=== PATIENT | male | born 1955 | race Caucasian/White ===

== ENCOUNTER 2019-10-11 21:08 | Observation (INO) | payer BC, OTHER ==
[2019-10-11] MEDS ORDERED: Morphine 2 MG/ML Syringe IVPUSH ONE (21:28)
[2019-10-11] MEDS ORDERED: Sodium Chloride 0.9% 2.5 ML Syringe FLUSH PRN (21:28)
[2019-10-11] MEDS ORDERED: Ibuprofen 800 MG Tab PO ONE (21:28)
[2019-10-11] MEDS ORDERED: Sodium Chloride 0.9% 10 ML Syringe FLUSH PRN (21:28)
[2019-10-11] MEDS ORDERED: Sodium Chloride 0.9% 1,000 ML IV ONE (21:28)
[2019-10-11] MEDS ORDERED: Acetaminophen 500 MG Tab PO ONE (21:28)
--- NOTE | 2019-10-11 21:34 | EDM.PDOC ---
ED HPI GENERAL MEDICAL PROBLEM - General Chief Complaint: Fever Stated Complaint: FLU SYMPTOMS Time Seen by Provider: 10/11/19 21:18 - History of Present Illness INITIAL COMMENTS - FREE TEXT/NARRATIVE: HISTORY AND PHYSICAL: History of present illness: The patient is a 64-year-old male with a history of hypertension who did get his influenza shot and presents with starting to feel poorly and having some rectal pain on and some loose stool which he does not normally have that is not black or bloody associated with that. The patient says he has a history of colon cancer and had the proximal third of his colon removed and is in remission and says that his stools are not normally loose because he takes a fiber supplement. He says that over the weekend he started feeling more generalized aches and pains along with the perirectal pain but no abdominal pain cough runny nose sore throat shortness of breath or chest pain. He started taking Tylenol and Motrin but stopped taking the Motrin because his looked up that it might inactivate his losartan. He has not taken any Motrin in the last more than 24 hours. He took 1000 mg of Tylenol at 2 PM approximately 7-1/2 hours ago, and took 500 mg at 4:30 PM approximately 5-1/2 hours ago. He says it is not broken his fever. He is eating and drinking normally and has no nausea. Review of systems: As per history of present illness and below otherwise all systems reviewed and negative. Past medical history: As per history of present illness and as reviewed below otherwise noncontributory. Surgical history: As per history of present illness and as reviewed below otherwise noncontributory. Social history: No reported history of drug or alcohol abuse. Family history: As per history of present illness and as reviewed below otherwise noncontributory. Physical exam: General: Well-developed well-nourished man who is overweight and nontoxic. Vital signs are noted by me HEENT: Atraumatic, normocephalic, pupils reactive, negative for conjunctival pallor or scleral icterus, mucous membranes moist, throat clear, neck supple, nontender, trachea midline. Lungs: Clear to auscultation, breath sounds equal bilaterally, chest nontender. Heart: S1S2, regular, negative for clicks, rubs, or JVD. Abdomen: Soft, nondistended, minimally tender in the left lower quadrant without rebound or guarding and it does not reproduce the pain exactly Negative for masses or hepatosplenomegaly. Negative for costovertebral tenderness. Pelvis: Stable nontender. Genitourinary: Deferred. Rectal: There is no external perianal lesions fullness or tenderness appreciated and on digital rectal exam performed by Dr. Graham and there were no palpable abscesses or masses appreciated. There was tenderness with this exam but no appreciable palpable deformities were noted by him Extremities: Atraumatic, negative for cords or calf pain. Neurovascular unremarkable. Neuro: Awake, alert, oriented. Cranial nerves II through XII unremarkable. Cerebellum unremarkable. Motor and sensory unremarkable throughout. Exam nonfocal. Diagnostics: CBC CMP lactic acid blood cultures influenza chest x-ray UA with reflex CT scan of the abdomen and pelvis Therapeutics: IV fluids Tylenol Motrin morphine Flagyl Levaquin Consult was requested to Dr Graham ; he and the patient and has perform the rectal exam with me. Please see his consult for further details and I will involve him as needed going forward pending the CAT scan results [id number]: Case was discussed with Dr. Graham and we will admit the patient here for IV antibiotics and he will be the primary care physician on this patient. Testing results were discussed with the patient and he is agreeable Impression: proctitis Definitive disposition and diagnosis as appropriate pending reevaluation and review of above. Buttock Pain Score (Numeric/FACES): 5 - Related Data Allergies Allergy/AdvReac Type Severity Reaction Status Date / Time No Known Allergies Allergy Verified 10/11/19 21:14 Home Meds: Home Meds Allopurinol [Zyloprim] 300 mg PO DAILY 10/11/19 [History] Losartan [Cozaar] 50 mg PO DAILY 10/11/19 [History] Multivitamin [Multivitamins] 1 each PO DAILY 10/11/19 [History] Psyllium Husk [Metamucil] 660 gm PO DAILY 10/11/19 [History] Past Medical History Cardiovascular History: Reports: High Cholesterol, Hypertension Oncologic (Cancer) History: Reports: Colon - Infectious Disease History Infectious Disease History: Reports: Chicken Pox, Measles - Past Surgical History HEENT Surgical History: Reports: Adenoidectomy, Tonsillectomy GI Surgical History: Reports: Other (See Below) Other GI Surgeries/Procedures: upper third of colon removed Social & Family History - Family History Family Medical History: Noncontributory - Tobacco Use Smoking Status *Q: Never Smoker - Caffeine Use Caffeine Use: Reports: Energy Drinks - Recreational Drug Use Recreational Drug Use: No ED ROS GENERAL - Review of Systems Review Of Systems: Comprehensive ROS is negative, except as noted in HPI. ED EXAM, GENERAL - Physical Exam Exam: See Below (See dictation) Course - Vital Signs Last Recorded V/S: Last Vital Signs Temp 37.2 C 10/11/19 23:51 Pulse 87 10/11/19 23:51 Resp 20 10/11/19 23:51 BP 135/59 L 10/11/19 23:51 Pulse Ox 94 L 10/11/19 23:51 - Orders/Labs/Meds Orders: Active Orders 24 hr Category Date Time Status Patient Status [ADT] Stat ADT 10/11/19 23:57 Ordered Notify Provider Consults [RC] ASDIRECTED Care 10/11/19 21:39 Active Consult to Physician [CONS] Stat Cons 10/11/19 21:39 Active CULTURE BLOOD [BC] Stat Lab 10/11/19 21:53 Received CULTURE BLOOD [BC] Stat Lab 10/11/19 22:14 Received Lactated Ringers @ 150 MLS/HR(1,000ml) Med 10/11/19 23:45 Ordered Lactated Ringers [Ringers, Lactated] 1,000 ml IV ASDIRECTED Levofloxacin/Dextrose 5%-Water [Levaquin in D5W 500 MG/ Med 10/11/19 23:56 Ordered 100 ML] 500 mg Premix Bag 1 bag IV ONETIME Sodium Chloride 0.9% [Saline Flush] Med 10/11/19 21:28 Active 10 ml FLUSH ASDIRECTED PRN Sodium Chloride 0.9% [Saline Flush] Med 10/11/19 21:28 Active 2.5 ml FLUSH ASDIRECTED PRN metroNIDAZOLE/Normal Saline [Flagyl 500 MG in NS 100 ML Med 10/11/19 23:56 Ordered ] 500 mg Premix Bag 1 bag IV ONETIME Blood Culture x2 Reflex Set [OM.PC] Stat Oth 10/11/19 21:30 Ordered Saline Lock Insert [OM.PC] Stat Oth 10/11/19 21:28 Ordered Medication Orders Lactated Ringer's (Ringers, Lactated) 1,000 mls @ 150 mls/hr IV ASDIRECTED TROY Levofloxacin/Dextrose 500 mg/ (Premix) 100 mls @ 100 mls/hr IV ONETIME ONE Stop: 10/12/19 00:55 Metronidazole 500 mg/ Premix 100 mls @ 100 mls/hr IV ONETIME ONE Stop: 10/12/19 00:55 Sodium Chloride (Saline Flush) 10 ml FLUSH ASDIRECTED PRN PRN Reason: Keep Vein Open Last Admin: 10/11/19 22:18 Dose: 10 ml Sodium Chloride (Saline Flush) 2.5 ml FLUSH ASDIRECTED PRN PRN Reason: Keep Vein Open Last Admin: 10/11/19 22:18 Dose: 2.5 ml Labs: Laboratory Tests 10/11/19 10/11/19 10/11/19 Range/Units 21:45 22:14 22:14 WBC 14.31 H (4.0-11.0) K/uL RBC 3.94 L (4.50-5.90) M/uL Hgb 11.6 L (13.0-17.0) g/dL Hct 33.9 L (38.0-50.0) % MCV 86.0 (80.0-98.0) fL MCH 29.4 (27.0-32.0) pg MCHC 34.2 (31.0-37.0) g/dL RDW Std Deviation 44.5 (28.0-62.0) fl RDW Coeff of [place] 14 (11.0-15.0) % Plt Count 190 (150-400) K/uL MPV 9.00 (7.40-12.00) fL Neut % (Auto) 85.0 H (48.0-80.0) % Lymph % (Auto) 6.6 L (16.0-40.0) % [place] % (Auto) 8.2 (0.0-15.0) % Eos % (Auto) 0.1 (0.0-7.0) % Baso % (Auto) 0.1 (0.0-1.5) % Neut # (Auto) 12.2 H (1.4-5.7) K/uL Lymph # (Auto) 0.9 (0.6-2.4) K/uL [place] # (Auto) 1.2 H (0.0-0.8) K/uL Eos # (Auto) 0.0 (0.0-0.7) K/uL Baso # (Auto) 0.0 (0.0-0.1) K/uL Nucleated RBC % 0.0 /100WBC Nucleated RBCs # 0 K/uL Lactate 1.2 (0.20-2.00) mmol/L Sodium (136-148) mmol/L Potassium (3.5-5.1) mmol/L Chloride (98-107) mmol/L Carbon Dioxide (21.0-32.0) mmol/L BUN (7.0-18.0) mg/dL Creatinine (0.8-1.3) mg/dL Est Cr Clr Drug Dosing mL/min Estimated GFR (MDRD) ml/min Glucose (74-106) mg/dL Calcium (8.5-10.1) mg/dL Total Bilirubin (0.2-1.0) mg/dL AST (15-37) IU/L ALT (14-63) IU/L Alkaline Phosphatase (46-116) U/L Total Protein (6.4-8.2) g/dL Albumin (3.4-5.0) g/dL Globulin (2.6-4.0) g/dL Albumin/Globulin Ratio (0.9-1.6) Urine Color YELLOW Urine Appearance CLEAR Urine pH 5.5 (5.0-8.0) Ur Specific [place] >= 1.030 (1.001-1.035) Urine Protein NEGATIVE (NEGATIVE) mg/dL Urine Glucose (UA) NEGATIVE (NEGATIVE) mg/dL Urine Ketones TRACE H (NEGATIVE) mg/dL Urine Occult Blood NEGATIVE (NEGATIVE) Urine Nitrite NEGATIVE (NEGATIVE) Urine Bilirubin NEGATIVE (NEGATIVE) Urine Urobilinogen 0.2 (<2.0) EU/dL Ur Leukocyte Esterase NEGATIVE (NEGATIVE) 10/11/19 Range/Units 22:14 WBC (4.0-11.0) K/uL RBC (4.50-5.90) M/uL Hgb (13.0-17.0) g/dL Hct (38.0-50.0) % MCV (80.0-98.0) fL MCH (27.0-32.0) pg MCHC (31.0-37.0) g/dL RDW Std Deviation (28.0-62.0) fl RDW Coeff of [place] (11.0-15.0) % Plt Count (150-400) K/uL MPV (7.40-12.00) fL Neut % (Auto) (48.0-80.0) % Lymph % (Auto) (16.0-40.0) % [place] % (Auto) (0.0-15.0) % Eos % (Auto) (0.0-7.0) % Baso % (Auto) (0.0-1.5) % Neut # (Auto) (1.4-5.7) K/uL Lymph # (Auto) (0.6-2.4) K/uL [place] # (Auto) (0.0-0.8) K/uL Eos # (Auto) (0.0-0.7) K/uL Baso # (Auto) (0.0-0.1) K/uL Nucleated RBC % /100WBC Nucleated RBCs # K/uL Lactate (0.20-2.00) mmol/L Sodium 137 (136-148) mmol/L Potassium 3.6 (3.5-5.1) mmol/L Chloride 100 (98-107) mmol/L Carbon Dioxide 21.5 (21.0-32.0) mmol/L BUN 25 H (7.0-18.0) mg/dL Creatinine 1.1 (0.8-1.3) mg/dL Est Cr Clr Drug Dosing 70.05 mL/min Estimated GFR (MDRD) > 60.0 ml/min Glucose 101 (74-106) mg/dL Calcium 8.6 (8.5-10.1) mg/dL Total Bilirubin 0.8 (0.2-1.0) mg/dL AST 26 (15-37) IU/L ALT 39 (14-63) IU/L Alkaline Phosphatase 75 (46-116) U/L Total Protein 7.7 (6.4-8.2) g/dL Albumin 3.4 (3.4-5.0) g/dL Globulin 4.3 H (2.6-4.0) g/dL Albumin/Globulin Ratio 0.8 L (0.9-1.6) Urine Color Urine Appearance Urine pH (5.0-8.0) Ur Specific [place] (1.001-1.035) Urine Protein (NEGATIVE) mg/dL Urine Glucose (UA) (NEGATIVE) mg/dL Urine Ketones (NEGATIVE) mg/dL Urine Occult Blood (NEGATIVE) Urine Nitrite (NEGATIVE) Urine Bilirubin (NEGATIVE) Urine Urobilinogen (<2.0) EU/dL Ur Leukocyte Esterase (NEGATIVE) Meds: Medications Generic Name Dose Route Start Last Admin Trade Name Barbara PRN Reason Stop Dose Admin Lactated Ringer's 1,000 mls @ 150 mls/hr 10/11/19 23:45 Ringers, Lactated IV ASDIRECTED TROY Levofloxacin/Dextrose 500 mg/ 100 mls @ 100 mls/hr 10/11/19 23:56 Premix IV 10/12/19 00:55 ONETIME ONE Metronidazole 500 mg/ Premix 100 mls @ 100 mls/hr 10/11/19 23:56 IV 10/12/19 00:55 ONETIME ONE Sodium Chloride 10 ml 10/11/19 21:28 10/11/19 22:18 Saline Flush FLUSH 10 ml ASDIRECTED PRN Administration Keep Vein Open Sodium Chloride 2.5 ml 10/11/19 21:28 10/11/19 22:18 Saline Flush FLUSH 2.5 ml ASDIRECTED PRN Administration Keep Vein Open Discontinued Medications Generic Name Dose Route Start Last Admin Trade Name Barbara PRN Reason Stop Dose Admin Acetaminophen 1,000 mg 10/11/19 21:28 10/11/19 22:02 Tylenol Extra Strength PO 10/11/19 21:29 1,000 mg ONETIME ONE Administration Sodium Chloride 1,000 mls @ 999 mls/hr 10/11/19 21:28 10/11/19 22:15 Normal Saline IV 10/11/19 22:28 999 mls/hr STAT ONE Administration Ibuprofen 800 mg 10/11/19 21:28 10/11/19 22:02 Motrin PO 10/11/19 21:29 800 mg ONETIME ONE Administration Iopamidol 100 ml 10/11/19 22:58 10/11/19 23:08 Isovue-370 (76%) IVPUSH 10/11/19 22:59 100 ml ONETIME STA Administration Morphine Sulfate 4 mg 10/11/19 21:28 10/11/19 22:15 Morphine IVPUSH 10/11/19 21:29 4 mg ONETIME ONE Administration Departure - Departure Time of Disposition: 23:59 Disposition: Refer to Observation Condition: Good Clinical Impression: Proctitis - Discharge Information Referrals: PCP,None [Primary Care Provider] - Forms: ED Department Discharge Sepsis Event Note - Evaluation Sepsis Screening Result: Possible Sepsis Risk - Focused Exam Vital Signs: Vital Signs Temp Temp Pulse Resp BP Pulse Ox 10/11/19 23:51 37.2 C 87 20 135/59 L 94 L 10/11/19 22:32 37.2 C 10/11/19 22:02 38.5 C H 10/11/19 21:15 38.6 C H 101 H 19 175/88 H 99 Date Exam was Performed: 10/11/19 Time Exam was Performed: 23:58 - My Orders Last 24 Hours: My Active Orders 10/11/19 21:28 Sodium Chloride 0.9% [Saline Flush] 10 ml FLUSH ASDIRECTED PRN Sodium Chloride 0.9% [Saline Flush] 2.5 ml FLUSH ASDIRECTED PRN Saline Lock Insert [OM.PC] Stat 10/11/19 21:30 Blood Culture x2 Reflex Set [OM.PC] Stat 10/11/19 21:39 Notify Provider Consults [RC] ASDIRECTED Consult to Physician [CONS] Stat 10/11/19 21:53 CULTURE BLOOD [BC] Stat 10/11/19 22:14 CULTURE BLOOD [BC] Stat 10/11/19 23:45 Lactated Ringers @ 150 MLS/HR(1,000ml) Lactated Ringers [Ringers, Lactated] 1, 000 ml IV ASDIRECTED 10/11/19 23:56 Levofloxacin/Dextrose 5%-Water [Levaquin in D5W 500 MG/100 ML] 500 mg Premix Bag 1 bag IV ONETIME metroNIDAZOLE/Normal Saline [Flagyl 500 MG in NS 100 ML] 500 mg Premix Bag 1 bag IV ONETIME 10/11/19 23:57 Patient Status [ADT] Stat - Assessment/Plan Last 24 Hours: My Active Orders 10/11/19 21:28 Sodium Chloride 0.9% [Saline Flush] 10 ml FLUSH ASDIRECTED PRN Sodium Chloride 0.9% [Saline Flush] 2.5 ml FLUSH ASDIRECTED PRN Saline Lock Insert [OM.PC] Stat 10/11/19 21:30 Blood Culture x2 Reflex Set [OM.PC] Stat 10/11/19 21:39 Notify Provider Consults [RC] ASDIRECTED Consult to Physician [CONS] Stat 10/11/19 21:53 CULTURE BLOOD [BC] Stat 10/11/19 22:14 CULTURE BLOOD [BC] Stat 10/11/19 23:45 Lactated Ringers @ 150 MLS/HR(1,000ml) Lactated Ringers [Ringers, Lactated] 1, 000 ml IV ASDIRECTED 10/11/19 23:56 Levofloxacin/Dextrose 5%-Water [Levaquin in D5W 500 MG/100 ML] 500 mg Premix Bag 1 bag IV ONETIME metroNIDAZOLE/Normal Saline [Flagyl 500 MG in NS 100 ML] 500 mg Premix Bag 1 bag IV ONETIME 10/11/19 23:57 Patient Status [ADT] Stat
[2019-10-11 22:51] LABS: BLOOD UREA NITROGEN,BUN 25 mg/dL (7.0-18.0); CARBON DIOXIDE,CO2 21.5 mmol/L (21.0-32.0); CHLORIDE,CL 100 mmol/L (98-107); GLUCOSE RANDOM 101 mg/dL (74-106); POTASSIUM,K 3.6 mmol/L (3.5-5.1); SODIUM,NA 137 mmol/L (136-148)
[2019-10-11] MEDS ORDERED: Iopamidol 755 Mg/ML 100 ML Bottle IVPUSH STA (22:58)
--- NOTE | 2019-10-11 23:28 | CR ---
INDICATION: 1 image. no prior. shortness of breath TECHNIQUE: Chest 1 view. COMPARISON: None. FINDINGS: Cardiovascular and mediastinum: Heart size and vasculature are normal in caliber and appearance. Mediastinum is within normal limits. Lungs and pleural space: Lungs are clear. No sign of infiltrate or mass. No sign of pleural effusion. No pneumothorax. Bones and soft tissues: No significant findings. IMPRESSION: Unremarkable chest. Dictated by: Deyvi Chambers MD @ 10/11/2019 23:26:20 (Electronically Signed)
--- NOTE | 2019-10-11 23:41 | CT ---
Indication: Rectal pain Technique: Contrast enhanced axial CT imaging through the abdomen and pelvis. 100 mL Isovue 370 contrast agent was administered intravenously. Sagittal and coronal reconstructions are provided. Comparison: None Findings: There is wall thickening of the distal rectum with rim of fluid density around the lateral and posterior margins measuring up to 1.5 cm. Findings are concerning for proctitis with possible perirectal abscess. There is no colonic wall thickening or pericolonic inflammatory stranding. The stomach and small bowel are unremarkable. There is no free intraperitoneal fluid or air. Scattered surgical clips are noted in the abdomen. There is no significant abnormality of the liver, spleen, pancreas, adrenal glands, and kidneys. A small hyperdense stone is noted and the gallbladder near its neck. There is no appreciable gallbladder wall thickening or pericholecystic fluid. The portal vein is patent. There is normal caliber of the abdominal aorta. There is no abdominal lymphadenopathy. The visualized osseous structures are unremarkable. The included lung bases are clear. Impression: 1. Findings concerning for proctitis with possible perirectal abscess. Correlate clinically. 2. Cholelithiasis without findings to suggest acute cholecystitis. 3. Otherwise no acute process demonstrated in the abdomen and pelvis. Please note that all CT scans at this facility use dose modulation, iterative reconstruction, and/or weight-based dosing when appropriate to reduce radiation dose to as low as reasonably achievable. Dictated by Ann Rodriguez MD @ Oct 11 2019 11:21PM Signed by Dr. Ann Rodriguez @ Oct 11 2019 11:39PM
[2019-10-11] MEDS ORDERED: Lactated Ringers 1,000 ML IV SCH (23:45)
[2019-10-11] MEDS ORDERED: Levofloxacin/Dextrose 5%-Water 500 MG in Premix Bag 1 BAG IV ONE (23:56)
[2019-10-11] MEDS ORDERED: metroNIDAZOLE/Normal Saline 500 MG in Premix Bag 1 BAG IV ONE (23:56)
[2019-10-12] MEDS ORDERED: Morphine 4 MG/ML Syringe IVPUSH ONE (01:02)
[2019-10-12] MEDS: Morphine 10 MG/ML Syringe IVPUSH PRN ×3 (03:23→11:36)
[2019-10-12] MEDS: Lactated Ringers 1,000 ML IV SCH ×2 (03:31→13:16)
[2019-10-12] MEDS: Acetaminophen/HYDROcodone 325-5 MG Tab PO PRN ×4 (05:44→20:14)
--- NOTE | 2019-10-12 08:14 | PCM.HP.2 ---
H&P History of Present Illness - General Date of Service: 10/12/19 Admit Problem/Dx: Admission Diagnosis/Problem Admission Diagnosis/Problem Proctitis Source of Information: Patient, Family History Limitations: Reports: No Limitations - History of Present Illness Initial Comments - Free Text/Narative: Patient is a 64-year-old gentleman who presented the emergency room last night complaining of severe rectal pain. Patient states he started feeling ill last with fever, chills, and myalgia. No nausea or vomiting. Over the weekend, he developed significant diaphoresis to the point that he had to change his bedding. He also had severe chills. The pain gradually migrated towards the rectum and he sought medical attention last night. I saw him in the emergency room with Dr. Ford. We could not find an obvious source of infection and a CT scan revealed proctitis without any obvious abscess. He is being admitted for parenteral antibiotics. Symptom Onset Date: 10/06/19 Duration of Symptoms: Reports: Getting Worse Location: Reports: Other (rectum) Quality: Reports: Pressure, Sharp Severity: Severe Improves with: Reports: Rest Worsens with: Reports: Movement Associated Symptoms: Reports: Diaphoresis, Fever/Chills, Loss of Appetite, Malaise, Weakness. Denies: Chest Pain, Cough, Nausea/Vomiting, Shortness of Breath, Syncope Buttock Pain Score (Numeric/FACES): 5 - Related Data Allergies/Adverse Reactions: Allergies Allergy/AdvReac Type Severity Reaction Status Date / Time No Known Allergies Allergy Verified 10/12/19 06:31 Home Medications: Home Meds Allopurinol [Zyloprim] 300 mg PO DAILY 10/11/19 [History] Losartan [Cozaar] 50 mg PO DAILY 10/11/19 [History] Multivitamin [Multivitamins] 1 each PO DAILY 10/11/19 [History] Psyllium Husk [Metamucil] 660 gm PO DAILY 10/11/19 [History] Past Medical History Cardiovascular History: Reports: Hypertension Genitourinary History: Reports: Renal Calculus Oncologic (Cancer) History: Reports: Colon - Infectious Disease History Infectious Disease History: Reports: Chicken Pox, Measles - Past Surgical History HEENT Surgical History: Reports: None GI Surgical History: Reports: Other (See Below) Other GI Surgeries/Procedures: upper third of colon removed Social & Family History - Family History Family Medical History: Noncontributory - Tobacco Use Smoking Status *Q: Never Smoker Second Hand Smoke Exposure: No - Caffeine Use Caffeine Use: Reports: Soda - Recreational Drug Use Recreational Drug Use: No H&P Review of Systems - Review of Systems: Review Of Systems: See Below General: Reports: Fever, Chills, Malaise, Fatigue, Night Sweats, Diaphoresis, Decreased Appetite HEENT: Reports: No Symptoms Pulmonary: Denies: Shortness of Breath, Wheezing, Pleuritic Chest Pain Cardiovascular: Denies: Chest Pain, Palpitations, Dyspnea on Exertion Gastrointestinal: Reports: Anorexia, Decreased Appetite, Mucous in Stool, Other (rectal pain). Denies: Abdominal Pain, Black Stool, Bloody Stool, Constipation , Diarrhea, Hematemesis, Hematochezia, Melena Genitourinary: Reports: Dysuria, Burning, Retention. Denies: Frequency, Pain, Urgency, Incontinence, Hematuria, Discharge, Flank Pain Exam - Exam Exam: See Below - Vital Signs Vital Signs: Last Vital Signs Temp 97.9 F 10/12/19 07:52 Pulse 73 10/12/19 07:52 Resp 14 10/12/19 07:52 BP 138/71 10/12/19 07:52 Pulse Ox 100 10/12/19 07:52 Weight: 262 lb 5.601 oz - Exam Quality Assessment: No: Supplemental Oxygen, Central Line/PICC, Urinary Catheter General: Alert, Oriented, Cooperative, Moderate Distress. No: Sedated, Lethargic, Obtunded HEENT: Conjunctiva Clear, Nares Patent, Pupils Equal, Pupils Reactive. No: Scleral Icterus Neck: Supple, Trachea Midline Lungs: Clear to Auscultation, Normal Respiratory Effort. No: Crackles, Rales, Rhonchi Cardiovascular: Regular Rate, Regular Rhythm. No: Tachycardia GI/Abdominal Exam: Normal Bowel Sounds, Soft, Non-Tender, No Distention, No Mass , Other (well healed right upper quadrant incision). No: Guarding, Rigid, Rebound (Male) Exam: No Hernia (29). No: Hernia (well healed right inguinal hernia incision) Rectal (Males) Exam: Tenderness. No: BPH, Decreased Rectal Tone, Fecal Impaction, Mass, Perirectal Abscess, Rectal Fissure Back Exam: Normal Inspection Extremities: Normal Inspection, Normal Range of Motion, Non-Tender Peripheral Pulses: 4+: Posterior Tibial (L), Posterior Tibial (R), Dorsalis Pedis (L), Dorsalis Pedis (R) Skin: Warm, Dry, Intact Neurological: Cranial Nerves Intact Neuro Extensive - Mental Status: Alert, Oriented x3, Normal Mood/Affect, Normal Cognition Psychiatric: Alert, Normal Affect, Normal Mood - Patient Data Lab Results Last 24 hrs: Laboratory Results - last 24 hr 10/11/19 10/11/19 10/11/19 Range/Units 21:45 22:14 22:14 WBC 14.31 H (4.0-11.0) K/uL RBC 3.94 L (4.50-5.90) M/uL Hgb 11.6 L (13.0-17.0) g/dL Hct 33.9 L (38.0-50.0) % MCV 86.0 (80.0-98.0) fL MCH 29.4 (27.0-32.0) pg MCHC 34.2 (31.0-37.0) g/dL RDW Std Deviation 44.5 (28.0-62.0) fl RDW Coeff of Sharon 14 (11.0-15.0) % Plt Count 190 (150-400) K/uL MPV 9.00 (7.40-12.00) fL Neut % (Auto) 85.0 H (48.0-80.0) % Lymph % (Auto) 6.6 L (16.0-40.0) % [place] % (Auto) 8.2 (0.0-15.0) % Eos % (Auto) 0.1 (0.0-7.0) % Baso % (Auto) 0.1 (0.0-1.5) % Neut # (Auto) 12.2 H (1.4-5.7) K/uL Lymph # (Auto) 0.9 (0.6-2.4) K/uL [place] # (Auto) 1.2 H (0.0-0.8) K/uL Eos # (Auto) 0.0 (0.0-0.7) K/uL Baso # (Auto) 0.0 (0.0-0.1) K/uL Nucleated RBC % 0.0 /100WBC Nucleated RBCs # 0 K/uL Lactate 1.2 (0.20-2.00) mmol/L Sodium (136-148) mmol/L Potassium (3.5-5.1) mmol/L Chloride (98-107) mmol/L Carbon Dioxide (21.0-32.0) mmol/L BUN (7.0-18.0) mg/dL Creatinine (0.8-1.3) mg/dL Est Cr Clr Drug Dosing mL/min Estimated GFR (MDRD) ml/min Glucose (74-106) mg/dL Calcium (8.5-10.1) mg/dL Total Bilirubin (0.2-1.0) mg/dL AST (15-37) IU/L ALT (14-63) IU/L Alkaline Phosphatase (46-116) U/L Total Protein (6.4-8.2) g/dL Albumin (3.4-5.0) g/dL Globulin (2.6-4.0) g/dL Albumin/Globulin Ratio (0.9-1.6) Urine Color YELLOW Urine Appearance CLEAR Urine pH 5.5 (5.0-8.0) Ur Specific Gideon >= 1.030 (1.001-1.035) Urine Protein NEGATIVE (NEGATIVE) mg/dL Urine Glucose (UA) NEGATIVE (NEGATIVE) mg/dL Urine Ketones TRACE H (NEGATIVE) mg/dL Urine Occult Blood NEGATIVE (NEGATIVE) Urine Nitrite NEGATIVE (NEGATIVE) Urine Bilirubin NEGATIVE (NEGATIVE) Urine Urobilinogen 0.2 (<2.0) EU/dL Ur Leukocyte Esterase NEGATIVE (NEGATIVE) 10/11/19 10/12/19 Range/Units 22:14 05:26 WBC 10.73 (4.0-11.0) K/uL RBC 3.78 L (4.50-5.90) M/uL Hgb 11.1 L (13.0-17.0) g/dL Hct 32.7 L (38.0-50.0) % MCV 86.5 (80.0-98.0) fL MCH 29.4 (27.0-32.0) pg MCHC 33.9 (31.0-37.0) g/dL RDW Std Deviation 44.0 (28.0-62.0) fl RDW Coeff of Sharon 14 (11.0-15.0) % Plt Count 168 (150-400) K/uL MPV 8.90 (7.40-12.00) fL Neut % (Auto) 77.1 (48.0-80.0) % Lymph % (Auto) 13.0 L (16.0-40.0) % [place] % (Auto) 9.5 (0.0-15.0) % Eos % (Auto) 0.3 (0.0-7.0) % Baso % (Auto) 0.1 (0.0-1.5) % Neut # (Auto) 8.3 H (1.4-5.7) K/uL Lymph # (Auto) 1.4 (0.6-2.4) K/uL [place] # (Auto) 1.0 H (0.0-0.8) K/uL Eos # (Auto) 0.0 (0.0-0.7) K/uL Baso # (Auto) 0.0 (0.0-0.1) K/uL Nucleated RBC % 0.0 /100WBC Nucleated RBCs # 0 K/uL Lactate (0.20-2.00) mmol/L Sodium 137 (136-148) mmol/L Potassium 3.6 (3.5-5.1) mmol/L Chloride 100 (98-107) mmol/L Carbon Dioxide 21.5 (21.0-32.0) mmol/L BUN 25 H (7.0-18.0) mg/dL Creatinine 1.1 (0.8-1.3) mg/dL Est Cr Clr Drug Dosing 70.05 mL/min Estimated GFR (MDRD) > 60.0 ml/min Glucose 101 (74-106) mg/dL Calcium 8.6 (8.5-10.1) mg/dL Total Bilirubin 0.8 (0.2-1.0) mg/dL AST 26 (15-37) IU/L ALT 39 (14-63) IU/L Alkaline Phosphatase 75 (46-116) U/L Total Protein 7.7 (6.4-8.2) g/dL Albumin 3.4 (3.4-5.0) g/dL Globulin 4.3 H (2.6-4.0) g/dL Albumin/Globulin Ratio 0.8 L (0.9-1.6) Urine Color Urine Appearance Urine pH (5.0-8.0) Ur Specific Gideon (1.001-1.035) Urine Protein (NEGATIVE) mg/dL Urine Glucose (UA) (NEGATIVE) mg/dL Urine Ketones (NEGATIVE) mg/dL Urine Occult Blood (NEGATIVE) Urine Nitrite (NEGATIVE) Urine Bilirubin (NEGATIVE) Urine Urobilinogen (<2.0) EU/dL Ur Leukocyte Esterase (NEGATIVE) Result Diagrams: 10/12/19 05:26 10/11/19 22:14 Victor Manuel Results Last 24 hrs: Microbiology 10/11/19 22:20 Influenza Type A Antigen Screen - Final Nasopharyngeal Swab NEGATIVE INFLUENZA A VIRUS AG REFERENCE RANGE: NEGATIVE Influenza Type B Antigen Screen - Final NEGATIVE INFLUENZA B VIRUS AG REFERENCE RANGE: NEGATIVE Sepsis Event Note - Evaluation Sepsis Screening Result: No Definite Risk - Focused Exam Vital Signs: Vital Signs Temp Temp Pulse Resp BP Pulse Ox 10/12/19 07:52 97.9 F 73 14 138/71 100 10/12/19 04:15 97.6 F 76 14 139/77 98 10/12/19 03:00 96.2 F 77 18 128/68 96 10/11/19 23:51 99.0 F 87 20 135/59 L 94 L 10/11/19 23:02 99.0 F 10/11/19 22:32 99.0 F 10/11/19 22:02 101.3 F H 10/11/19 21:15 101.5 F H 101 H 19 175/88 H 99 Date Exam was Performed: 10/12/19 Time Exam was Performed: 08:08 - Problem List (1) Hypertension SNOMED Code(s): 32537387 ICD Code: I10 - ESSENTIAL (PRIMARY) HYPERTENSION Status: Acute Priority: Medium Current Visit: Yes Qualifiers: Hypertension type: essential hypertension Qualified Code(s): I10 - Essential (primary) hypertension (2) Proctitis SNOMED Code(s): 6775888 ICD Code: K62.89 - OTHER SPECIFIED DISEASES OF ANUS AND RECTUM Status: Acute Priority: High Current Visit: Yes Problem List Initiated/Reviewed/Updated: Yes Orders Last 24hrs: Active Orders 24 hr Category Date Time Status Patient Status [ADT] Stat ADT 10/11/19 23:57 Active Notify Provider Consults [RC] ASDIRECTED Care 10/11/19 21:39 Active Consult to Physician [CONS] Stat Cons 10/11/19 21:39 Active Clear Liquid Diet [DIET] Diet 10/12/19 Breakfast Active CBC WITH AUTO DIFF [HEME] AM Lab 10/13/19 05:11 Ordered CULTURE BLOOD [BC] Stat Lab 10/11/19 21:53 Received CULTURE BLOOD [BC] Stat Lab 10/11/19 22:14 Received Acetaminophen/HYDROcodone [[place] 325-5 MG] Med 10/12/19 00:42 Active 1 tab PO Q4H PRN Lactated Ringers [Ringers, Lactated] 1,000 ml Med 10/11/19 23:45 Active IV ASDIRECTED Lactated Ringers [Ringers, Lactated] 1,000 ml Med 10/12/19 00:15 Active IV ASDIRECTED Levofloxacin/Dextrose 5%-Water [Levaquin in D5W 500 MG/ Med 10/12/19 08:15 Ordered 100 ML] 500 mg Premix Bag 1 bag IV Q24H Losartan [Cozaar] Med 10/12/19 09:00 Ordered 50 mg PO DAILY Morphine Med 10/12/19 00:42 Active 5 mg IVPUSH Q1H PRN Multivitamin [Multivitamins] Med 10/12/19 09:00 Ordered 1 each PO DAILY Psyllium Husk [Metamucil] Med 10/12/19 09:00 Ordered 660 gm PO DAILY Sodium Chloride 0.9% [Saline Flush] Med 10/11/19 21:28 Active 10 ml FLUSH ASDIRECTED PRN Sodium Chloride 0.9% [Saline Flush] Med 10/11/19 21:28 Active 2.5 ml FLUSH ASDIRECTED PRN allopurinoL [Zyloprim] Med 10/12/19 09:00 Ordered 300 mg PO DAILY metroNIDAZOLE/Normal Saline [Flagyl 500 MG in NS 100 ML Med 10/12/19 12:00 Ordered ] 500 mg Premix Bag 1 bag IV QID Blood Culture x2 Reflex Set [OM.PC] Stat Oth 10/11/19 21:30 Ordered Saline Lock Insert [OM.PC] Stat Oth 10/11/19 21:28 Ordered Medication Orders Hydrocodone Bitart/Acetaminophen ([place] 325-5 Mg) 1 tab PO Q4H PRN PRN Reason: Pain Last Admin: 10/12/19 05:44 Dose: 1 tab Allopurinol (Zyloprim) 300 mg PO DAILY [facility] Lactated Ringer's (Ringers, Lactated) 1,000 mls @ 150 mls/hr IV ASDIRECTED TROY Lactated Ringer's (Ringers, Lactated) 1,000 mls @ 125 mls/hr IV ASDIRECTED TROY Last Admin: 10/12/19 03:31 Dose: 125 mls/hr Levofloxacin/Dextrose 500 mg/ (Premix) 100 mls @ 100 mls/hr IV Q24H TROY Metronidazole 500 mg/ Premix 100 mls @ 100 mls/hr IV QID [facility] Losartan Potassium (Cozaar) 50 mg PO DAILY [facility] Morphine Sulfate (Morphine) 5 mg IVPUSH Q1H PRN PRN Reason: Pain Last Admin: 10/12/19 07:30 Dose: 5 mg Admin: 10/12/19 03:23 Dose: 5 mg Non-Formulary Medication (Multivitamin [Multivitamins]) 1 each PO DAILY [facility] Non-Formulary Medication (Psyllium Husk [Metamucil]) 660 gm PO DAILY [facility] Sodium Chloride (Saline Flush) 10 ml FLUSH ASDIRECTED PRN PRN Reason: Keep Vein Open Last Admin: 10/11/19 22:18 Dose: 10 ml Sodium Chloride (Saline Flush) 2.5 ml FLUSH ASDIRECTED PRN PRN Reason: Keep Vein Open Last Admin: 10/11/19 22:18 Dose: 2.5 ml Assessment/Plan Comment:: CT report does show proctitis without any obvious fluid collection or abscess. We'll continue his Levaquin and metronidazole as well as pain management. Continue clear liquid diet. Home medications are restarted. - Mortality Measure Prognosis:: Good
[2019-10-12] MEDS: Psyllium Husk Powder Sugar Free 5.85 GM Packet PO SCH (09:55)
[2019-10-12] MEDS: Multivitamin Tab PO SCH (09:56)
[2019-10-12] MEDS: Allopurinol 100 MG Tab PO SCH (09:57)
[2019-10-12] MEDS: Losartan 50 MG Tab PO SCH (09:58)
[2019-10-12] MEDS: metroNIDAZOLE/Normal Saline 500 MG in Premix Bag 1 BAG IV SCH ×3 (10:00→20:38)
[2019-10-12] MEDS ORDERED: Morphine 10 MG/ML Syringe IVPUSH PRN ×2 (12:21→12:23)
[2019-10-12] MEDS ORDERED: Morphine 4 MG/ML Syringe IVPUSH PRN (12:25)
[2019-10-12] MEDS ORDERED: Ondansetron 4 MG/2 ML SDV IVPUSH PRN (14:15)
[2019-10-12] MEDS: Morphine 4 MG/ML Syringe IVPUSH PRN (17:55)
[2019-10-13] MEDS ORDERED: traMADol 50 MG Tab PO SCH
[2019-10-13] MEDS: Acetaminophen/HYDROcodone 325-5 MG Tab PO PRN ×3 (00:31→09:07)
[2019-10-13] MEDS ORDERED: Levofloxacin/Dextrose 5%-Water 500 MG in Premix Bag 1 BAG IV SCH (01:00)
[2019-10-13] MEDS: Morphine 4 MG/ML Syringe IVPUSH PRN ×3 (01:46→07:32)
[2019-10-13] MEDS: metroNIDAZOLE/Normal Saline 500 MG in Premix Bag 1 BAG IV SCH ×2 (01:47→09:05)
[2019-10-13] MEDS: Lactated Ringers 1,000 ML IV SCH (03:27)
[2019-10-13] MEDS: Psyllium Husk Powder Sugar Free 5.85 GM Packet PO SCH (09:06)
[2019-10-13] MEDS: Allopurinol 100 MG Tab PO SCH (09:06)
[2019-10-13] MEDS: Multivitamin Tab PO SCH (09:06)
[2019-10-13] MEDS: Losartan 50 MG Tab PO SCH (09:09)
[2019-10-13] MEDS ORDERED: traMADol 50 MG Tab PO PRN (10:30)
--- NOTE | 2019-10-13 11:12 | PCM.DCSUM1 ---
Discharge Summary - Hospital Course Free Text/Narrative:: Patient is a 64-year-old gentleman who presented to the emergency room on October 11 complaining of severe rectal pain. He started noticing discomfort the prior . Symptoms became worse on Thursday and intolerable on Thursday. He decided that he could not make it to [place] where he lives and presented to the emergency room here in [place]. He was initially seen by Dr. Ford and I was asked to see him in consultation. Examination at that time did reveal severe rectal pain, although there was no obvious abscess or erythema. A subsequent CT scan did reveal significant proctitis with a questionable fluid collection. It was elected to admit the patient to the hospital for pain control and intravenous antibiotics. He has responded somewhat to the antibiotic therapy. His pain is much more controlled but not completely resolved. He did have an episode of rectal bleeding on the . That resolved spontaneously. As he was not completely improved, I did discuss the case with Dr. Levar Crabtree, who is a colorectal surgeon in [place]. He suggested the patient might benefit from exam under anesthesia and possibly endorectal ultrasound. This is not available here in [place]. Dr. Crabtree did agree to see the patient through the emergency room at [facility] in [place]. Patient is going to be allowed to drive himself there. HPI Initial Comments: See original dictation. Diagnosis: Stroke: No - Discharge Data Discharge Date: 10/13/19 Discharge Disposition: DC/Tfer to Acute Hospital 02 Condition: Stable - Referral to Home Health Primary Care Physician: PCP None - Discharge Diagnosis/Problem(s) (1) Hypertension SNOMED Code(s): 48880411 ICD Code: I10 - ESSENTIAL (PRIMARY) HYPERTENSION Status: Acute Priority: Medium Current Visit: Yes Qualifiers: Hypertension type: essential hypertension Qualified Code(s): I10 - Essential (primary) hypertension (2) Proctitis SNOMED Code(s): 0232151 ICD Code: K62.89 - OTHER SPECIFIED DISEASES OF ANUS AND RECTUM Status: Acute Priority: High Current Visit: Yes - Patient Summary/Data Consults: Consultations 10/11/19 21:39 Consult to Physician [CONS] Stat - Patient Instructions Diet: NPO Driving: May Drive Today Other/Special Instructions: Patient is to go by POV to ER at [facility] in [place]. He is to see Dr. Crabtree. Dr. Crabtree has accepted the patient for evaluation and treatment. - Discharge Plan *PRESCRIPTION DRUG MONITORING PROGRAM REVIEWED*: No *COPY OF PRESCRIPTION DRUG MONITORING REPORT IN PATIENT GENI: No Home Medications: Home Meds Allopurinol [Zyloprim] 300 mg PO DAILY 10/11/19 [History] Losartan [Cozaar] 50 mg PO DAILY 10/11/19 [History] Multivitamin [Multivitamins] 1 each PO DAILY 10/11/19 [History] Psyllium Husk [Metamucil] 660 gm PO DAILY 10/11/19 [History] Referrals: Kvng Graham MD [Physician] - - Discharge Summary/Plan Comment DC Time >30 min.: No - General Info Date of Service: 10/13/19 Functional Status: Reports: Pain Controlled (Pain is improved but not completely controlled.), Tolerating Diet, Ambulating, Urinating. Denies: New Symptoms - Review of Systems General: Reports: Fever. Denies: Weakness, Fatigue, Malaise, Chills, Night Sweats HEENT: Reports: No Symptoms Pulmonary: Denies: Shortness of Breath, Cough Cardiovascular: Denies: Chest Pain Gastrointestinal: Reports: Decreased Appetite, Flatus. Denies: Abdominal Pain, Constipation, Diarrhea, Hematochezia, Melena, Nausea, Vomiting Genitourinary: Reports: Pain, Urgency. Denies: Dysuria, Frequency, Burning, Hematuria Musculoskeletal: Reports: No Symptoms Skin: Reports: No Symptoms Neurological: Reports: No Symptoms Psychiatric: Reports: No Symptoms - Patient Data Vitals - Most Recent: Last Vital Signs Temp 99.9 F 10/13/19 07:29 Pulse 86 10/13/19 07:29 Resp 16 10/13/19 07:29 BP 156/73 H 10/13/19 09:09 Pulse Ox 94 L 10/13/19 07:29 Weight - Most Recent: 262 lb 5.601 oz I&O - Last 24 hours: Intake & Output 10/12/19 10/13/19 10/13/19 19:59 03:59 11:59 Intake Total 1140 2295 Output Total 720 890 Balance 420 1405 Lab Results - Last 24 hrs: Laboratory Results - last 24 hr 10/13/19 Range/Units 05:53 WBC 11.16 H (4.0-11.0) K/uL RBC 3.45 L (4.50-5.90) M/uL Hgb 10.2 L (13.0-17.0) g/dL Hct 29.6 L (38.0-50.0) % MCV 85.8 (80.0-98.0) fL MCH 29.6 (27.0-32.0) pg MCHC 34.5 (31.0-37.0) g/dL RDW Std Deviation 44.1 (28.0-62.0) fl RDW Coeff of Sharon 14 (11.0-15.0) % Plt Count 167 (150-400) K/uL MPV 8.80 (7.40-12.00) fL Neut % (Auto) 81.5 H (48.0-80.0) % Lymph % (Auto) 9.1 L (16.0-40.0) % [place] % (Auto) 9.0 (0.0-15.0) % Eos % (Auto) 0.3 (0.0-7.0) % Baso % (Auto) 0.1 (0.0-1.5) % Neut # (Auto) 9.1 H (1.4-5.7) K/uL Lymph # (Auto) 1.0 (0.6-2.4) K/uL [place] # (Auto) 1.0 H (0.0-0.8) K/uL Eos # (Auto) 0.0 (0.0-0.7) K/uL Baso # (Auto) 0.0 (0.0-0.1) K/uL Nucleated RBC % 0.0 /100WBC Nucleated RBCs # 0 K/uL ALAYNA Results - Last 24 hrs: Microbiology 10/11/19 22:14 Aerobic Blood Culture - Preliminary Blood - Venous - Lab Draw NO GROWTH AFTER 1 DAY Anaerobic Blood Culture - Preliminary NO GROWTH AFTER 1 DAY 10/11/19 21:53 Aerobic Blood Culture - Preliminary Blood - Venous NO GROWTH AFTER 1 DAY Anaerobic Blood Culture - Preliminary NO GROWTH AFTER 1 DAY Med Orders - Current: Current Medications Hydrocodone Bitart/Acetaminophen ([place] 325-5 Mg) 1 tab PO Q4H PRN PRN Reason: Pain Last Admin: 10/13/19 09:07 Dose: 1 tab Allopurinol (Zyloprim) 300 mg PO DAILY [facility] Last Admin: 10/13/19 09:06 Dose: 300 mg Lactated Ringer's (Ringers, Lactated) 1,000 mls @ 125 mls/hr IV ASDIRECTED [facility] Last Admin: 10/13/19 03:27 Dose: 125 mls/hr Levofloxacin/Dextrose 500 mg/ (Premix) 100 mls @ 100 mls/hr IV Q24H [facility] Last Admin: 10/13/19 00:32 Dose: 100 mls/hr Metronidazole 500 mg/ Premix 100 mls @ 100 mls/hr IV Q6H [facility] Last Admin: 10/13/19 09:05 Dose: 100 mls/hr Losartan Potassium (Cozaar) 50 mg PO DAILY [facility] Last Admin: 10/13/19 09:09 Dose: 50 mg Morphine Sulfate (Morphine) 0 mg IVPUSH Q1H PRN PRN Reason: moderate pain Last Admin: 10/13/19 07:32 Dose: 3 mg Morphine Sulfate (Morphine) 4 mg IVPUSH Q1H PRN PRN Reason: SEVERE PAIN Multivitamins/Minerals/Vitamin C (Tab-A-Sherri) 1 tab PO DAILY [facility] Last Admin: 10/13/19 09:06 Dose: 1 tab Ondansetron HCl (Zofran) 4 mg IVPUSH Q6H PRN PRN Reason: Nausea/Vomiting Psyllium Husk (Metamucil Sugar Free) 1 pkt PO DAILY [facility] Last Admin: 10/13/19 09:06 Dose: 1 pkt Sodium Chloride (Saline Flush) 10 ml FLUSH ASDIRECTED PRN PRN Reason: Keep Vein Open Last Admin: 10/11/19 22:18 Dose: 10 ml Sodium Chloride (Saline Flush) 2.5 ml FLUSH ASDIRECTED PRN PRN Reason: Keep Vein Open Last Admin: 10/11/19 22:18 Dose: 2.5 ml Tramadol HCl (Ultram) 50 mg PO Q4H PRN PRN Reason: Pain (moderate 4-6) Discontinued Medications Acetaminophen (Tylenol Extra Strength) 1,000 mg PO ONETIME ONE Stop: 10/11/19 21:29 Last Admin: 10/11/19 22:02 Dose: 1,000 mg Sodium Chloride (Normal Saline) 1,000 mls @ 999 mls/hr IV STAT ONE Stop: 10/11/19 22:28 Last Admin: 10/11/19 22:15 Dose: 999 mls/hr Lactated Ringer's (Ringers, Lactated) 1,000 mls @ 150 mls/hr IV ASDIRECTED TROY Levofloxacin/Dextrose 500 mg/ (Premix) 100 mls @ 100 mls/hr IV ONETIME ONE Stop: 10/12/19 00:55 Last Admin: 10/12/19 01:13 Dose: 100 mls/hr Metronidazole 500 mg/ Premix 100 mls @ 100 mls/hr IV ONETIME ONE Stop: 10/12/19 00:55 Last Admin: 10/12/19 01:13 Dose: 100 mls/hr Ibuprofen (Motrin) 800 mg PO ONETIME ONE Stop: 10/11/19 21:29 Last Admin: 10/11/19 22:02 Dose: 800 mg Iopamidol (Isovue-370 (76%)) 100 ml IVPUSH ONETIME STA Stop: 10/11/19 22:59 Last Admin: 10/11/19 23:08 Dose: 100 ml Morphine Sulfate (Morphine) 4 mg IVPUSH ONETIME ONE Stop: 10/11/19 21:29 Last Admin: 10/11/19 22:15 Dose: 4 mg Morphine Sulfate (Morphine) 5 mg IVPUSH Q1H PRN PRN Reason: Pain Last Admin: 10/12/19 11:36 Dose: 3 mg Morphine Sulfate (Morphine) 4 mg IVPUSH ONETIME ONE Stop: 10/12/19 01:03 Last Admin: 10/12/19 01:12 Dose: 4 mg Morphine Sulfate (Morphine) 0 mg IVPUSH Q1H PRN PRN Reason: moderate pain Morphine Sulfate (Morphine) 4 mg IVPUSH Q1H PRN PRN Reason: SEVERE PAIN - Exam Quality Assessment: Denies: Supplemental Oxygen, Central Line/PICC, Urine Catheter General: Reports: Alert, Oriented, Cooperative, Mild Distress HEENT: Reports: Pupils Equal, Pupils Reactive. Denies: Scleral Icterus Neck: Reports: Supple Lungs: Reports: Clear to Auscultation, Normal Respiratory Effort Cardiovascular: Reports: Regular Rate, Regular Rhythm GI/Abdominal Exam: Normal Bowel Sounds, Soft, Non-Tender, No Distention. No: Guarding, Rigid, Rebound, Tender (Male) Exam: No Hernia Rectal (Males) Exam: Other (Rectal exam not repeated today). No: Perirectal Abscess, Rectal Fissure Back Exam: Reports: Normal Inspection Extremities: Normal Inspection, Normal Range of Motion Skin: Reports: Warm, Dry, Intact Neurological: Reports: No New Focal Deficit Psy/Mental Status: Reports: Alert, Normal Affect, Normal Mood
== END 2019-10-13 12:15 ==
LOC: MW.ED 21:08 → MW.MS 23:57
PROVIDERS: ADMIT Surgery; ATTEND Surgery
DX: K62.89 Other specified diseases of anus and rectum (principal); I10 Essential (primary) hypertension; E78.00 Pure hypercholesterolemia, unspecified; Z79.899 Other long term (current) drug therapy
CPT/HCPCS: 36415; 71045; 74177; 80053; 81003; 83605; 85025; 87040; 87804; 96361; 96365; 96366; 96368; 96375; 96376; 99285; A9270; G0378; J1956; J2270; J3490; J7030; J7120; Q9967; 99284